=== PATIENT | female | born 1995 | race Caucasian/White ===

== ENCOUNTER 2017-11-17 15:51 | Inpatient (IN) ==
[2017-11-17] MEDS ORDERED: RINGER'S SOLUTION,LACTATED 1,000 ML IV ONE (16:44)
[2017-11-17] MEDS ORDERED: DEXTROSE 5%-LACTATED RINGERS 1,000 ML IV PRN (16:44)
[2017-11-17] MEDS ORDERED: MISOPROSTOL 100 MCG TABLET VG PRN (16:44)
[2017-11-17] MEDS ORDERED: OXYTOCIN/DEXTROSE 5%-WATER 30 UNITS/500 ML BAG IV ONE (16:44)
[2017-11-17 17:32] LABS: Hematocrit 33.2 % (37.0-47.0); Hemoglobin 11.3 gm/dL (12.5-16.0); Mean Cell Volume 92.2 fl (78-100); Mean Corpuscular Hemoglobin 31.4 pg (27-31); Mean Platelet Volume 12.1 fl (8-12.5); Platelet Count 224 K/mm3 (150-450); Red Cell Distribution Width 13.6 % (11.5-14.0); White Blood Count 13.6 K/mm3 (4.0-10.5)
[2017-11-17 17:33] LABS: Albumin * 2.7 gm/dl (3.4-5.0); Anion Gap 13.7 mmol/L (6.8-13.8); BUN/Creatinine Ratio 11.9 (9.0-21.6); Bilirubin, Total 0.3 mg/dL (0.0-1.1); Ca. Corrected For Albumin 9.6 mg/dL (8.4-10.2); Calcium * 8.9 mg/dL (7.9-10.9); Carbon Dioxide 23.3 mmol/L (24-32.6); Total Protein 6.4 gm/dL (6.2-8.2)
--- NOTE | 2017-11-17 20:37 | HP ---
Chief Complaint - Chief Complaint Date of Service: 11/17/17 Time of Service: 20:24 Chief Complaint: elevated blood pressures History of Present Illness: This is a 22 yo at 39 3/7 wks who presents to L&D from office for induction of labor due to gestational hypertension. Patient denies headache, visual changes, epigastric pain, or excessive edema. ADONIS 11/21/17 by LMP of 02/14/17, confirmed with 26 wk ultrasound. This complicated by anxiety, late PNC (26wks), anemia, smoker, and gestational hypertension). Rh negative Rubella immune GBS negative Medical History (Last Reviewed 11/17/17 @ 20:29 by Derrek Tripathi DO) Anxiety Onset Date: Unknown Cat scratch fever Onset Date: Unknown Chlamydia Onset Date: ~2010 Spontaneous Onset Date: ~06/2015 Surgical History: Surgical History (Last Reviewed 11/17/17 @ 20:29 by Derrek Tripathi DO) History of incision and drainage Onset Date: Unknown Family History: Family History (Last Reviewed 11/17/17 @ 20:29 by Derrek Tripathi DO) Father Alive and well Grandmother COPD (chronic obstructive pulmonary disease) Mother Alive and well Social History: Preferred Language Sen[place]alese Review Of Systems (GEN) - Review of Systems Generalized/Overall Review: Present: No Symptoms Reported EENTM: Present: No Symptoms Reported Respiratory: Present: No Symptoms Reported. Absent: Shortness of Breath Cardiac: Present: No Symptoms Reported Abdominal: Present: No Symptoms Reported. Absent: Nausea, Vomiting, Abdominal Pain Genitourinary: Present: No Symptoms Reported Musculoskeletal: Present: No Symptoms Reported Neurological: Present: Anxiety. Absent: Headache, Seizure Endocrine: Present: No Symptoms Reported Allergies/Adverse Reactions: Allergies Allergy/AdvReac Type Severity Reaction Status Date / Time No Known Allergies Allergy Verified 10/23/17 15:42 Home Medications: HOME MEDICATIONS [id number] 400 mcg-om3 35 mg-dha 25 mg-epa 5 mg-fish oil chewable tablet 2 tab PO DAILY tab 10/20/17 [Last Taken Unknown] Exam - Exam Vital Signs: Vital Signs - Last Taken Temp 36.9 C 11/17/17 17:59 Pulse 88 11/17/17 17:59 Resp 18 11/17/17 17:59 BP 164/96 H 11/17/17 17:59 Pulse Ox 100 11/17/17 17:59 Repeat BPs 130s-150s/80-90s Constitutional: Present: Alert, Oriented x3, Cooperative, No distress ENT Exam: Present: hearing grossly normal Breasts: Present: Exam deferred Respiratory: Present: lungs clear, normal breath sounds, no respiratory distress Cardiovascular/Chest: Present: normal peripheral pulses, regular rate, rhythm, edema - 1+ Abdomen: Present: soft, nontender, other - gravid. Absent: guarding, rebound tenderness /Rectal: Present: Other - cervix /-3 Extremity: Present: normal range of motion, non-tender, no pedal edema, no calf tenderness, pedal edema Skin Exam: Present: normal color, warm/dry, no cyanosis Neurologic: Present: normal mood/affect, oriented x 3 Appearance: Present: appropriate appearance, appropriate insight Eye contact: Present: cooperative, good eye contact, normal speech Thoughts: Present: normal thought pattern Diagnostic Studies: Abnormal Lab Results 11/17/17 11/17/17 11/17/17 Range/Units 17:15 17:15 Unknown WBC 13.6 H (4.0-10.5) K/mm3 RBC 3.60 L (4.2-5.4) M/mm3 Hgb 11.3 L (12.5-16.0) gm/dL Hct 33.2 L (37.0-47.0) % MCH 31.4 H (27-31) pg Chloride 107 H (97-106) mmol/L Carbon Dioxide 23.3 L (24-32.6) mmol/L Est GFR (Non-Af Amer) 134 H (60-130) mL/min Random Glucose 65 L (70-110) mg/dL Alkaline Phosphatase 249 H (50-170) U/L Albumin 2.7 L (3.4-5.0) gm/dl Ur Random Creatinine 216.0 H (60-200) mg/dL U Random Total Protein 46.0 H (0-12) mg/dL U [place] Prot/Creat Ratio 213 H (0-199) mg/gm Laboratory Results WBC 13.6 K/mm3 (4.0-10.5) H 11/17/17 17:15 RBC 3.60 M/mm3 (4.2-5.4) L 11/17/17 17:15 Hgb 11.3 gm/dL (12.5-16.0) L 11/17/17 17:15 Hct 33.2 % (37.0-47.0) L 11/17/17 17:15 MCV 92.2 fl (78-100) 11/17/17 17:15 MCH 31.4 pg (27-31) H 11/17/17 17:15 MCHC 34.0 g/dl (32-36) 11/17/17 17:15 RDW 13.6 % (11.5-14.0) 11/17/17 17:15 Plt Count 224 K/mm3 (150-450) 11/17/17 17:15 MPV 12.1 fl (8-12.5) 11/17/17 17:15 Sodium 140 mmol/L (132-142) 11/17/17 17:15 Plasma Sodium 139 mmol/L (130-142) 11/17/17 17:15 Potassium 4.0 mmol/L (3.4-4.6) 11/17/17 17:15 Chloride 107 mmol/L (97-106) H 11/17/17 17:15 Carbon Dioxide 23.3 mmol/L (24-32.6) L 11/17/17 17:15 Anion Gap 13.7 mmol/L (6.8-13.8) 11/17/17 17:15 BUN 7 mg/dL (3-23) 11/17/17 17:15 Creatinine 0.59 mg/dL (0.4-1.4) 11/17/17 17:15 Est GFR (Non-Af Amer) 134 mL/min (60-130) H 11/17/17 17:15 BUN/Creatinine Ratio 11.9 (9.0-21.6) 11/17/17 17:15 Random Glucose 65 mg/dL (70-110) L 11/17/17 17:15 Calcium 8.9 mg/dL (7.9-10.9) 11/17/17 17:15 Calcium Adj for Albumin 9.6 mg/dL (8.4-10.2) 11/17/17 17:15 Total Bilirubin 0.3 mg/dL (0.0-1.1) 11/17/17 17:15 AST 31 U/L (0-48) 11/17/17 17:15 ALT 28 U/L (19-67) 11/17/17 17:15 Alkaline Phosphatase 249 U/L (50-170) H 11/17/17 17:15 Total Protein 6.4 gm/dL (6.2-8.2) 11/17/17 17:15 Albumin 2.7 gm/dl (3.4-5.0) L 11/17/17 17:15 Ur Random Creatinine 216.0 mg/dL (60-200) H 11/17/17 Unknown U Random Total Protein 46.0 mg/dL (0-12) H 11/17/17 Unknown U [place] Prot/Creat Ratio 213 mg/gm (0-199) H 11/17/17 Unknown Assessment/Plan - Assessment/Plan (1) Gestational hypertension Assessment: admit for cervical ripening. Seizure precautions when in active labor. Epidural PRN. Problem: Acute Qualifiers: Trimester: third trimester Qualified Code(s): O13.3 - Gestational [ -induced] hypertension without significant proteinuria, third trimester (2) Tobacco abuse Assessment: counseled. Problem: Chronic (3) Anxiety Assessment: stable off meds Problem: Chronic
--- NOTE | 2017-11-17 20:52 | PN ---
Progess Note - Interim Date: 11/17/17 Time: 20:50 Narrative: 11/17/17 20:50 Patient rating her contractions as mild Vital signs stable. Last blood pressure 135/83 Status post Cytotec 25 g vaginally 1 at approximately 1740 FHT: 120 baseline, reassuring Contractions q 24 min Cervix: 375/-1 Impression: Intrauterine at 39-3/7 weeks. Induction of labor for gestational hypertension Plan: Pitocin augmentation if necessary
[2017-11-18] MEDS ORDERED: BUPIVACAINE HCL/0.9 % NACL/PF 250 ML EP PRN (03:37)
[2017-11-18] MEDS ORDERED: NALOXONE HCL 1 MG/1 ML SYRG IV PRN (03:37)
[2017-11-18] MEDS ORDERED: ONDANSETRON HCL/PF 2 MG/ML VIAL IV PRN (03:37)
[2017-11-18] MEDS ORDERED: BUPIVACAINE HCL/PF 30 ML VIAL EP SCH (03:45)
--- NOTE | 2017-11-18 04:05 | ANES ---
Anesthesia Pre Procedure Eval Vitals/Labs: Last Vital Signs Temp 36.9 C 11/17/17 17:59 Pulse 88 11/17/17 17:59 Resp 18 11/17/17 17:59 BP 164/96 H 11/17/17 17:59 Pulse Ox 100 11/17/17 17:59 HOME MEDICATIONS [id number] 400 mcg-om3 35 mg-dha 25 mg-epa 5 mg-fish oil chewable tablet 2 tab PO DAILY tab 10/20/17 [Last Taken Unknown] Allergies/Adverse Reactions: Allergies Allergy/AdvReac Type Severity Reaction Status Date / Time No Known Allergies Allergy Verified 10/23/17 15:42 - Planned Procedure Planned Procedure: Labor epidural Medication List Reviewed:: Yes Allergies Verified: Yes Medical History (Last Reviewed 11/18/17 @ 04:04 by Luis Carlos Beyer CRNA) Anxiety Onset Date: Unknown Cat scratch fever Onset Date: Unknown Chlamydia Onset Date: ~2010 Spontaneous Onset Date: ~06/2015 Surgical History (Last Reviewed 11/18/17 @ 04:04 by Luis Carlos Beyer CRNA) History of incision and drainage Onset Date: Unknown Family History (Last Reviewed 11/17/17 @ 20:29 by Derrek Tripathi DO) Father Alive and well Grandmother COPD (chronic obstructive pulmonary disease) Mother Alive and well - Cardiovascular Tolerates Activity: Good Heart Sounds: S1 & S2 - Anesthesia Assessment and Plan ASA Class: PS, II Anesthesia Type Plan: Epidural Planned difficult intubation/equipment available: No
--- NOTE | 2017-11-18 04:23 | ANES ---
Anesthesia Procedure Note Procedure Note: ANESTHESIA PROCEDURE NOTE Date of Procedure: 11/18/2017. Time of procedure: 0405. Performed by: Luis Carlos Beyer CRNA Customer Complaint Clerk: None. Preprocedure diagnosis: Active labor. Post procedure diagnosis: Same. Procedure: Insertion of labor epidural. Indications: The patient is a 22 -year-old female in active labor requesting labor epidural for pain management. Findings: See below. Details of the procedure: The patient was placed in a sitting position. DuraPrep as well as Betadine swabs X3 was applied to the patient's back. Patient was then draped in a sterile fashion. Lidocaine 1% was infiltrated to the skin and subcutaneous tissues at the level of the L3-4 interspace. The epidural space was identified using a 18-gauge Tuohy needle with loss-of- resistance technique. Epidural catheter was inserted to a depth of 10 centimeters at skin. Negative test dose was elicited using 3 mL of 1.5% preservative-free lidocaine plus epinephrine 1 200,000. The epidural catheter was then taped and secured in place. A loading dose of 8 mL of 0.25% preservative-free bupivacaine was administered to the epidural catheter after negative aspiration for blood and CSF. EBL: Minimal. Fluids: N/A. Specimen: N/A. Post procedure condition: The patient tolerated the procedure well. No complications were noted. Thank you for this consultation. Luis Carlos Beyer CRNA
--- NOTE | 2017-11-18 04:23 | ANES ---
Post Anesthesia Assessment - Vital Signs Vitals: Last Vital Signs Temp 36.5 C 11/18/17 04:20 Pulse 75 11/18/17 04:20 Resp 16 11/18/17 04:20 BP 110/53 11/18/17 04:20 Pulse Ox 100 11/17/17 17:59 Airway Patency: Normal - Mental Status Level Of Consciousness: Awake - N/V Assessment Nausea/Vomiting Presence: None Dehydration:: No
--- NOTE | 2017-11-18 13:19 | OR ---
Operative Report - Dictated Report Narrative: Spontaneous vaginal delivery of viable female at 0942 on 11/18/2017 with Apgars 8 and 9, weighing 3382 g in EMA position with tight nuchal cord 1 and body cord 1. Cord clamping delayed approximately 1 minute Placenta delivered complete, intact, with three vessel cord Estimated blood loss: less than 50 ml Anesthesia: epidural Lacerations: 2 cm second degree vaginal laceration repaired with 3-0 Vicryl Rapide
[2017-11-18] MEDS ORDERED: OXYTOCIN/DEXTROSE 5%-WATER 30 UNITS/500 ML BAG IV ONE (13:24)
[2017-11-18] MEDS ORDERED: SENNOSIDES 8.6 MG TABLET PO PRN (13:24)
[2017-11-18] MEDS ORDERED: oxyCODONE HCL/ACETAMINOPHEN 1 TAB TABLET PO PRN ×2 (13:24)
[2017-11-18] MEDS ORDERED: HYDROCORTISONE 30 APPL TUBE TP PRN (13:24)
[2017-11-18] MEDS ORDERED: BISACODYL 10 MG SUPP.RECT RC PRN (13:24)
[2017-11-18] MEDS ORDERED: IBUPROFEN 800 MG TABLET PO PRN (13:24)
[2017-11-18] MEDS ORDERED: BENZOCAINE/MENTHOL 81 SPRAY CAN TP PRN (13:24)
[2017-11-18] MEDS ORDERED: GLYCERIN/WITCH HAZEL LEAF 40 APPL BOX TP PRN (13:24)
[2017-11-18] MEDS: DOCUSATE SODIUM 100 MG CAPSULE PO SCH (22:04)
[2017-11-19] MEDS: DOCUSATE SODIUM 100 MG CAPSULE PO SCH ×2 (08:04→21:08)
--- NOTE | 2017-11-19 10:35 | PN ---
Subjective - Date and Time Seen Date: 11/19/17 Time: 10:34 Objective - Vitals Vitals: Last Vital Signs Temp 36.4 C 11/19/17 07:00 Pulse 76 11/19/17 07:00 Resp 18 11/19/17 07:00 BP 135/64 11/19/17 07:00 Pulse Ox 98 11/19/17 07:00 Patient denies complaints. Denies headache, visual changes, or epigastric pain. Lochia wnl Abdomen - soft, nontender Uterus - firm, at umbilicus - 1 No calf tenderness 1+ bilateral lower extremity pitting edema Impression: day #1 - s/p spontaneous vaginal delivery. Gestational hypertension-resolved. Plan: Continue routine care. Preeclampsia precautions. Cauti Physician Documentation - Urinary Catheter Management Urethral ([place]ermudez) Date of Insertion: 11/18/17 Time of Insertion: 04:40 Assessment/Plan - Problems/Diagnosis (1) Gestational hypertension Problem: Acute Qualifiers: Trimester: third trimester Qualified Code(s): O13.3 - Gestational [ -induced] hypertension without significant proteinuria, third trimester (2) Tobacco abuse Problem: Chronic (3) Anxiety Problem: Chronic
[2017-11-19] MEDS: FISH OIL T PO SCH (13:28)
[2017-11-19] MEDS: [UNRECOGNIZED DRUG - OTHER] PO SCH (13:28)
[2017-11-19] MEDS: PNV62 PO SCH (13:28)
[2017-11-19] MEDS: DHA PO SCH (13:28)
[2017-11-19] MEDS: EPA PO SCH (13:28)
--- NOTE | 2017-11-20 09:07 | PN ---
Subjective - Date and Time Seen Date: 11/20/17 Time: 09:07 Objective - Vitals Vitals: Last Vital Signs Temp 36.2 C 11/20/17 07:04 Pulse 83 11/20/17 07:04 Resp 18 11/20/17 07:04 BP 137/89 11/20/17 07:04 Pulse Ox 100 11/20/17 07:04 Patient denies complaints. Lochia wnl Abdomen - soft, nontender Uterus - firm, at umbilicus - 2 No calf tenderness Impression: day #2 - s/p spontaneous vaginal delivery. Plan: Routine discharge instructions Cauti Physician Documentation - Urinary Catheter Management Urethral ([place]z) Date of Insertion: 11/18/17 Time of Insertion: 04:40 Assessment/Plan - Problems/Diagnosis (1) Gestational hypertension Problem: Acute Qualifiers: Trimester: third trimester Qualified Code(s): O13.3 - Gestational [ -induced] hypertension without significant proteinuria, third trimester (2) Tobacco abuse Problem: Chronic (3) Anxiety Problem: Chronic
[2017-11-20] MEDS: DOCUSATE SODIUM 100 MG CAPSULE PO SCH (09:41)
[2017-11-20] MEDS: FISH OIL T PO SCH (09:42)
[2017-11-20] MEDS: DHA PO SCH (09:42)
[2017-11-20] MEDS: EPA PO SCH (09:42)
[2017-11-20] MEDS: [UNRECOGNIZED DRUG - OTHER] PO SCH (09:42)
[2017-11-20] MEDS: PNV62 PO SCH (09:42)
[2017-11-20 12:54] VITALS: BP 135/75
== END 2017-11-20 13:40 | disposition home or self-care (01) | DRG 775 ==
LOC: OBCLINIC 15:51 → OB 16:49
PROVIDERS: ADMIT Obstetrics & Gynecology; ATTEND Obstetrics & Gynecology
CPT/HCPCS: 36415; 59025; 80053; 82570; 84155; 84156; 85027